=== PATIENT | female | born 1985 | race African-American/Black ===

== ENCOUNTER 2021-06-01 19:17 | Emergency (ER) | payer OTHER ==
[2021-06-01 19:33] VITALS: TEMP 99.5; BMI 28.1
[2021-06-01] MEDS ORDERED: ACETAMINOPHEN 1000 MG/100 ML VIAL (NON FORMULARY) IVPB ONE (21:19)
[2021-06-01] MEDS ORDERED: SODIUM CHLORIDE 0.9% 500 ML INFUS.BAG IV ONE (21:20)
[2021-06-01] MEDS ORDERED: ACETAMINOPHEN INJECTION 100 ML IVPB ONE (21:30)
[2021-06-01 22:10] LABS: BASO % 0.7 % (0-2.0); EOS % 0.6 % (0-4.5); HEMATOCRIT 40.8 % (32.4-45.2); HEMOGLOBIN 13.4 GM/dL (10.7-15.3); LYMPH % 24.9 % (8-40); MCH 28.5 pg (25.7-33.7); MCHC 32.8 g/dl (32.0-36.0); MEAN CELL VOLUME 87.1 fl (80-96); MEAN PLT VOLUME 7.2 fl (7.5-11.1); MONO % 8.5 % (3.8-10.2); NEUT % 65.3 % (42.8-82.8); PLATELET COUNT 347 10^3/uL (134-434); RBC 4.69 M/mm3 (3.60-5.2); WHITE BLOOD COUNT 8.3 K/mm3 (4.0-10.0)
[2021-06-01 22:34] LABS: CALCIUM 9.4 mg/dL (8.5-10.1)
[2021-06-01 22:35] LABS: ALBUMIN 3.9 g/dl (3.4-5.0); BLOOD UREA NITROGEN 10.6 mg/dL (7-18)
[2021-06-01 22:38] LABS: CREATININE 0.7 mg/dL (0.55-1.3)
[2021-06-01 22:39] LABS: BILIRUBIN,TOTAL 0.4 mg/dL (0.2-1); TOT PROT 7.7 g/dl (6.4-8.2)
[2021-06-02 00:53] LABS: HCG,QUALITATIVE URINE Positive
[2021-06-02 00:57] LABS: EPI CELLS 9 /uL (0-25.1); HYALINE CASTS 2 /uL (0-3.1); PH,URINE 5.5 (5.0-8.0); URINE APPEARANCE CLEAR; URINE BACTERIA 20 /uL (0-1359); URINE BILIRUBIN NEGATIVE (NEGATIVE); URINE COLOR YELLOW; URINE GLUCOSE (UA) NEGATIVE (NEGATIVE); URINE KETONE 3+ (NEGATIVE); URINE LEUK ESTERASE NEGATIVE (NEGATIVE); URINE NITRITE NEGATIVE (NEGATIVE); URINE PROTEIN NEGATIVE (NEGATIVE); URINE RBC 207 /uL (0-23.9); URINE WBC 8 /uL (0-25.8)
[2021-06-02 01:32] VITALS: BP 113/77; PULSE 93
== END 2021-06-02 02:01 | disposition home or self-care (01) ==
LOC: JER 19:17
PROC: 3E0333Z Introduction of Anti-inflammatory into Peripheral Vein, Percutaneous Approach (ICD-10-PCS; principal; 2021-06-01)
DX: O20.0 Threatened abortion (principal)
CPT/HCPCS: 36415; 76817-TC; 80053; 81003; 84702; 84703; 85025; 86850; 86900; 86901; 99284-25; J0131

== ENCOUNTER 2021-06-02 22:25 | Emergency (ER) | payer OTHER ==
[2021-06-02 22:32] VITALS: BMI 28.1
[2021-06-02 23:07] LABS: BASO % 0.5 % (0-2.0); EOS % 0.8 % (0-4.5); HEMOGLOBIN 13.1 GM/dL (10.7-15.3); MCH 28.9 pg (25.7-33.7); MCHC 33.5 g/dl (32.0-36.0); MEAN CELL VOLUME 86.3 fl (80-96); MEAN PLT VOLUME 6.8 fl (7.5-11.1); NEUT % 77.7 % (42.8-82.8); PLATELET COUNT 353 10^3/uL (134-434); RBC 4.51 M/mm3 (3.60-5.2); RDW 12.7 % (11.6-15.6); WHITE BLOOD COUNT 9.8 K/mm3 (4.0-10.0)
[2021-06-02] MEDS ORDERED: morphine CARPU-JECT 2 MG/1 ML DISP.SYRIN IVPUSH ONE (23:16)
[2021-06-02] MEDS ORDERED: MORPHINE SULFATE 2 MG/ML VIAL ONE (23:17)
[2021-06-02 23:29] LABS: ALBUMIN 3.7 g/dl (3.4-5.0); BLOOD UREA NITROGEN 8.4 mg/dL (7-18)
[2021-06-02 23:32] LABS: CREATININE 0.8 mg/dL (0.55-1.3)
[2021-06-02 23:34] LABS: BILIRUBIN,TOTAL 0.4 mg/dL (0.2-1); TOT PROT 7.4 g/dl (6.4-8.2)
[2021-06-03] MEDS ORDERED: KETOROLAC TROMETHAMINE 15 MG/ML VIAL IVPUSH ONE (00:54)
[2021-06-03] MEDS ORDERED: KETOROLAC TROMETHAMINE 15 MG/ML VIAL ONE (01:00)
[2021-06-03 01:19] LABS: EPI CELLS 10 /uL (0-25.1); HYALINE CASTS 2 /uL (0-3.1); URINE APPEARANCE CLEAR; URINE BACTERIA 35 /uL (0-1359); URINE BILIRUBIN NEGATIVE (NEGATIVE); URINE COLOR YELLOW; URINE GLUCOSE (UA) NEGATIVE (NEGATIVE); URINE KETONE 2+ (NEGATIVE); URINE LEUK ESTERASE NEGATIVE (NEGATIVE); URINE NITRITE NEGATIVE (NEGATIVE); URINE PROTEIN NEGATIVE (NEGATIVE); URINE RBC 217 /uL (0-23.9); URINE WBC 8 /uL (0-25.8)
[2021-06-03] MEDS ORDERED: morphine CARPU-JECT 2 MG/1 ML DISP.SYRIN IVPUSH ONE (01:55)
[2021-06-03] MEDS ORDERED: MORPHINE SULFATE 2 MG/ML VIAL ONE (02:24)
[2021-06-03 02:37] VITALS: TEMP 98.5
[2021-06-03 04:12] VITALS: BP 118/64; PULSE 78
== END 2021-06-03 04:12 | disposition home or self-care (01) ==
LOC: JER 22:25
PROC: 3E0333Z Introduction of Anti-inflammatory into Peripheral Vein, Percutaneous Approach (ICD-10-PCS; principal; 2021-06-02)
PROC: 3E033NZ Introduction of Analgesics, Hypnotics, Sedatives into Peripheral Vein, Percutaneous Approach (ICD-10-PCS; 2021-06-02)
PROC: 3E033NZ Introduction of Analgesics, Hypnotics, Sedatives into Peripheral Vein, Percutaneous Approach (ICD-10-PCS; 2021-06-02)
DX: O03.9 Complete or unspecified spontaneous abortion without complication (principal); D25.9 Leiomyoma of uterus, unspecified; R10.2 Pelvic and perineal pain
CPT/HCPCS: 36415; 76856-TC; 80053; 81003; 84702; 85025; 86850; 86900; 86901; 87086; 99284-25